=== PATIENT | female | born 1995 ===

== ENCOUNTER 2022-03-17 18:33 | Emergency (ER) | payer OTHER ==
[2022-03-17 19:31] VITALS: BP 104/66
[2022-03-17] MEDS ORDERED: IBUPROFEN 400 MG TAB PO ONE (19:32)
== END 2022-03-18 01:30 | disposition left against medical advice (07) ==
LOC: ED 18:33
DX: R07.9 Chest pain, unspecified (principal); Z53.21 Procedure and treatment not carried out due to patient leaving prior to being seen by health care provider